=== PATIENT | female | born 1955 | race African-American/Black ===

== ENCOUNTER 2019-03-30 02:26 | Inpatient (IN) | payer MEDICAID ==
[~2019-03-30] VITALS: Ht 177.8 cm; Wt 130.2 kg
[2019-03-30] VITALS (20 sets, daily range): BP systolic 100–139; BP diastolic 55–85
[2019-03-30] MEDS ORDERED: ONDANSETRON HCL 4MG/2ML INJ IV STA (02:34)
[2019-03-30] MEDS ORDERED: NITROGLYCERIN OINT 1GM/INCH UDPKT TD ONE (02:45)
[2019-03-30 03:03] LABS: BASOPHILS % 0.6 % (0.0-2.0); EOSINOPHILS % 2.1 % (0.0-5.0); HEMATOCRIT. 45.4 % (36.0-48.0); HEMOGLOBIN. 15.2 g/dL (12.0-16.0); MEAN CORPUSCULAR HEMOGLOBIN 27.5 pg (28.0-32.0); MEAN CORPUSCULAR VOLUME 82.2 fL (81.0-99.0); MEAN PLATELET VOLUME 10.8 fl (7.4-10.4); MONOCYTES % 6.3 % (2.0-8.0); PLATELET 218 x1000/uL (130-400); RED BLOOD CELL COUNT 5.53 mill/uL (4.2-5.4); RED CELL DISTRIBUTION WIDTH 15.9 % (11.6-14.6)
[2019-03-30 03:07] LABS: CHLORIDE 109 mEq/L (98-107)
[2019-03-30 03:17] LABS: BG BASE EXCESS -0.8 mmol/L (-2.0-2.0); BG BILEVEL POS AIRWAY PRESSURE 15/5; BG CARBOXYHEMOGLOBIN 0.6 % (0.5-1.5); BG DEOXYHEMOGLOBIN 0.8 % (0.0-5.0); BG FRACTION INSPIRED OXYGEN 50; BG HCO3 ACT 24.9 mmol/L (22.0-26.0); BG METHEMOGLOBIN 0.3 % (0.0-1.5); BG OXYGEN SATURATION 99.2 % (92.0-98.5); BG OXYHEMOGLOBIN 98.3 % (94.0-97.0); BG PH 7.361 (7.350-7.450); BG PO2 210.7 mmHg (75.0-100.0); BG SAMPLE SITE RIGHT BRACHIAL; BG VENT MODE MASK - BIPAP
[2019-03-30] MEDS ORDERED: ONDANSETRON HCL 4MG/2ML INJ IV PRN (09:15)
[2019-03-30] MEDS ORDERED: GUAIFENESIN 200MG/10ML SUGAR FREE UDC PO PRN (09:15)
[2019-03-30] MEDS ORDERED: CLONIDINE 0.1MG TABLET PO PRN (09:15)
[2019-03-30] MEDS ORDERED: MAGNESIUM/ALUMINUM HYDROXIDE/SIMETHICONE 30ML UDC PO PRN (09:15)
[2019-03-30] MEDS ORDERED: DIPHENHYDRAMINE 50MG/ML VIAL IV PRN (09:15)
[2019-03-30] MEDS ORDERED: FUROSEMIDE 40MG/4ML VIAL IVP SCH ×2 (09:15→17:15)
[2019-03-30 11:32] LABS: PROTHROMBIN TIME 10.7 sec (9.6-11.0)
[2019-03-30] MEDS ORDERED: DEXTROSE 50% WATER 50ML SYRINGE IV PRN (11:45)
[2019-03-30] MEDS: BLOOD SUGAR DIAGNOSTIC STRIP TEST SCH ×3 (11:58→21:52)
[2019-03-30] MEDS: INSULIN LISPRO 100 UNITS/ML SUBCUT SCH ×3 (12:20→21:55)
[2019-03-30] MEDS: IPRATROPIUM/ALBUTEROL 0.5-3(2.5)MG/3ML NEB HHN SCH ×2 (12:57→20:33)
[2019-03-30] MEDS: SODIUM CHLORIDE 0.9% INJ 3ML FLUSH IVF SCH ×2 (14:12→22:19)
[2019-03-30] MEDS: NITROGLYCERIN OINT 1GM/INCH UDPKT TD SCH ×2 (14:16→22:00)
[2019-03-30] MEDS ORDERED: WARFARIN SODIUM 7.5MG TABLET PO SCH (18:00)
[2019-03-30] MEDS: METFORMIN HCL 500MG TABLET PO SCH (18:32)
[2019-03-30] MEDS ORDERED: ENOXAPARIN 60MG/0.6ML SYR SUBCUT NR (18:45)
[2019-03-30] MEDS: FLUTICASONE PROPIONATE 50MCG/SPRAY BOTTLE BOTHNSTRLS SCH (21:50)
[2019-03-30] MEDS: ATORVASTATIN CALCIUM 40MG TABLET PO SCH (21:51)
[2019-03-30] MEDS: CARVEDILOL 12.5MG TABLET PO SCH (21:51)
[2019-03-30] MEDS: ACETAMINOPHEN 325MG TABLET PO PRN (21:57)
[2019-03-31] VITALS (12 sets, daily range): BP systolic 108–152; BP diastolic 62–93
[2019-03-31] MEDS: IPRATROPIUM/ALBUTEROL 0.5-3(2.5)MG/3ML NEB HHN SCH ×4 (01:14→20:57)
[2019-03-31] MEDS: GLIPIZIDE 10MG TABLET PO SCH (06:00)
[2019-03-31] MEDS: NITROGLYCERIN OINT 1GM/INCH UDPKT TD SCH ×3 (06:00→22:00)
[2019-03-31] MEDS: INSULIN LISPRO 100 UNITS/ML SUBCUT SCH ×4 (06:00→21:00)
[2019-03-31] MEDS ORDERED: SODIUM CHLORIDE 0.45% 1,000 ML IV ONE (06:00)
[2019-03-31] MEDS: METFORMIN HCL 500MG TABLET PO SCH ×2 (06:00→16:51)
[2019-03-31] MEDS: SODIUM CHLORIDE 0.9% INJ 3ML FLUSH IVF SCH ×3 (06:07→22:31)
[2019-03-31] MEDS: BLOOD SUGAR DIAGNOSTIC STRIP TEST SCH ×4 (06:08→21:27)
[2019-03-31 06:30] LABS: PROTHROMBIN TIME 10.7 sec (9.6-11.0)
[2019-03-31 06:49] LABS: PHOSPHORUS 5.3 mg/dL (2.5-4.9)
[2019-03-31 07:21] LABS: EOSINOPHILS % 2.4 % (0.0-5.0); HEMATOCRIT. 43.5 % (36.0-48.0); HEMOGLOBIN. 14.4 g/dL (12.0-16.0); LYMPHOCYTES % 43.8 % (20.0-50.0); MEAN CORPUSCULAR HEMOGLOBIN 27.4 pg (28.0-32.0); MEAN CORPUSCULAR VOLUME 82.7 fL (81.0-99.0); NEUTROPHILS % 43.8 % (40.0-76.0); PLATELET 206 x1000/uL (130-400); RED BLOOD CELL COUNT 5.26 mill/uL (4.2-5.4); RED CELL DISTRIBUTION WIDTH 15.9 % (11.6-14.6)
[2019-03-31] MEDS: FLUTICASONE PROPIONATE 50MCG/SPRAY BOTTLE BOTHNSTRLS SCH ×2 (08:25→21:26)
[2019-03-31] MEDS: CARVEDILOL 12.5MG TABLET PO SCH ×2 (08:26→21:26)
[2019-03-31] MEDS: SPIRONOLACTONE 25MG TABLET PO SCH (08:26)
[2019-03-31] MEDS: ALLOPURINOL 100 MG TABLET PO SCH (08:26)
[2019-03-31] MEDS: AMLODIPINE 5MG TABLET PO SCH (08:27)
[2019-03-31] MEDS ORDERED: ENOXAPARIN 100MG/ML SYR SUBCUT SCH ×2 (09:45→21:45)
[2019-03-31] MEDS ORDERED: MAGNESIUM 2 G PREMIX 50 ML IV NR (11:00)
[2019-03-31] MEDS: ACETAMINOPHEN 325MG TABLET PO PRN ×2 (17:18→23:22)
[2019-03-31] MEDS: ATORVASTATIN CALCIUM 40MG TABLET PO SCH (21:27)
[2019-04-01] VITALS (17 sets, daily range): BP systolic 105–141; BP diastolic 53–85
[2019-04-01] MEDS: IPRATROPIUM/ALBUTEROL 0.5-3(2.5)MG/3ML NEB HHN SCH ×4 (02:11→21:07)
[2019-04-01] MEDS: SODIUM CHLORIDE 0.9% INJ 3ML FLUSH IVF SCH ×3 (05:50→22:05)
[2019-04-01] MEDS: GLIPIZIDE 10MG TABLET PO SCH (05:50)
[2019-04-01] MEDS: NITROGLYCERIN OINT 1GM/INCH UDPKT TD SCH ×3 (05:50→22:08)
[2019-04-01] MEDS: BLOOD SUGAR DIAGNOSTIC STRIP TEST SCH ×4 (05:51→22:05)
[2019-04-01] MEDS: METFORMIN HCL 500MG TABLET PO SCH ×2 (05:51→17:20)
[2019-04-01] MEDS: INSULIN LISPRO 100 UNITS/ML SUBCUT SCH ×4 (05:51→21:00)
[2019-04-01] MEDS ORDERED: SODIUM CHLORIDE 0.45% 1,000 ML IV SCH (07:00)
[2019-04-01] MEDS: CARVEDILOL 12.5MG TABLET PO SCH ×2 (07:54→22:04)
[2019-04-01] MEDS: AMLODIPINE 5MG TABLET PO SCH (07:54)
[2019-04-01] MEDS: SPIRONOLACTONE 25MG TABLET PO SCH (07:54)
[2019-04-01] MEDS: FLUTICASONE PROPIONATE 50MCG/SPRAY BOTTLE BOTHNSTRLS SCH ×2 (07:55→22:04)
[2019-04-01] MEDS: ALLOPURINOL 100 MG TABLET PO SCH (07:55)
[2019-04-01 07:56] LABS: BASOPHILS % 0.8 % (0.0-2.0); EOSINOPHILS % 2.6 % (0.0-5.0); HEMATOCRIT. 41.5 % (36.0-48.0); HEMOGLOBIN. 13.8 g/dL (12.0-16.0); LYMPHOCYTES % 38.8 % (20.0-50.0); MEAN CORPUSCULAR HEMOGLOBIN 27.5 pg (28.0-32.0); MEAN CORPUSCULAR VOLUME 82.4 fL (81.0-99.0); MEAN PLATELET VOLUME 10.4 fl (7.4-10.4); MONOCYTES % 9.3 % (2.0-8.0); NEUTROPHILS % 48.5 % (40.0-76.0); PLATELET 191 x1000/uL (130-400); RED BLOOD CELL COUNT 5.03 mill/uL (4.2-5.4); RED CELL DISTRIBUTION WIDTH 15.6 % (11.6-14.6)
[2019-04-01 08:23] LABS: PROTHROMBIN TIME 10.8 sec (9.6-11.0)
[2019-04-01] MEDS ORDERED: ASPIRIN 325MG TABLET PO NR (09:15)
[2019-04-01] MEDS ORDERED: LIDOCAINE HCL 1% 20ML VIAL (Pyxis) INJ ONE (10:28)
[2019-04-01] MEDS ORDERED: IODIXANOL 320MG/ML 100 ML BOTTLE IV ONE (10:29)
[2019-04-01] MEDS ORDERED: ASPIRIN/SOD BICARB/CITRIC ACID 324MG TAB EFF ONE (10:29)
[2019-04-01] MEDS ORDERED: MIDAZOLAM HCL 2 MG/2 ML VIAL ONE (11:10)
[2019-04-01] MEDS ORDERED: FENTANYL CITRATE/PF 50MCG/ML 2ML VIAL ONE (11:10)
[2019-04-01] MEDS ORDERED: ONDANSETRON HCL 4MG/2ML INJ IV PRN (11:45)
[2019-04-01] MEDS ORDERED: ATROPINE SULFATE 1MG/10ML SYR IV PRN (11:45)
[2019-04-01] MEDS ORDERED: ACETAMINOPHEN 325MG TABLET PO PRN (11:45)
[2019-04-01] MEDS ORDERED: MORPHINE SULFATE 2 MG/ML CPJ (NOT FOR IM USE) IV PRN (11:45)
[2019-04-01] MEDS ORDERED: SODIUM CHLORIDE 0.45% 1,000 ML IV NR (12:00)
[2019-04-01] MEDS ORDERED: NICARDIPINE 100MCG/ML 10ML VIAL (CATH LAB) IV ONE (12:06)
[2019-04-01] MEDS ORDERED: NITROGLYCERIN 50MCG/ML 10ML VIAL (CATH LAB) IV ONE (12:06)
[2019-04-01] MEDS ORDERED: HEPARIN SODIUM 1,000 UNIT/1ML VIAL IV ONE (12:06)
[2019-04-01] MEDS ORDERED: WARFARIN SODIUM 5MG TABLET PO NR (18:00)
[2019-04-01] MEDS ORDERED: ENOXAPARIN 80MG/0.8ML SYR SUBCUT SCH (19:00)
[2019-04-01] MEDS: ATORVASTATIN CALCIUM 40MG TABLET PO SCH (22:05)
[2019-04-02] VITALS (10 sets, daily range): BP systolic 107–137; BP diastolic 57–79
[2019-04-02] MEDS: IPRATROPIUM/ALBUTEROL 0.5-3(2.5)MG/3ML NEB HHN SCH ×2 (02:45→07:58)
[2019-04-02] MEDS: NITROGLYCERIN OINT 1GM/INCH UDPKT TD SCH ×2 (06:00→13:00)
[2019-04-02] MEDS: BLOOD SUGAR DIAGNOSTIC STRIP TEST SCH ×3 (06:21→16:11)
[2019-04-02] MEDS: SODIUM CHLORIDE 0.9% INJ 3ML FLUSH IVF SCH ×2 (06:21→13:00)
[2019-04-02] MEDS: INSULIN LISPRO 100 UNITS/ML SUBCUT SCH ×3 (06:22→16:11)
[2019-04-02] MEDS: GLIPIZIDE 10MG TABLET PO SCH (06:24)
[2019-04-02] MEDS: METFORMIN HCL 500MG TABLET PO SCH ×2 (06:24→17:42)
[2019-04-02 06:30] LABS: BASOPHILS % 1.1 % (0.0-2.0); EOSINOPHILS % 2.5 % (0.0-5.0); HEMATOCRIT. 42.4 % (36.0-48.0); HEMOGLOBIN. 14.2 g/dL (12.0-16.0); LYMPHOCYTES % 37.4 % (20.0-50.0); MEAN CORPUSCULAR HEMOGLOBIN 27.6 pg (28.0-32.0); MEAN CORPUSCULAR VOLUME 82.4 fL (81.0-99.0); MEAN PLATELET VOLUME 10.6 fl (7.4-10.4); PLATELET 172 x1000/uL (130-400); RED BLOOD CELL COUNT 5.15 mill/uL (4.2-5.4); RED CELL DISTRIBUTION WIDTH 15.5 % (11.6-14.6)
[2019-04-02 06:34] LABS: PROTHROMBIN TIME 10.9 sec (9.6-11.0)
[2019-04-02] MEDS: ALLOPURINOL 100 MG TABLET PO SCH (08:42)
[2019-04-02] MEDS: SPIRONOLACTONE 25MG TABLET PO SCH (08:43)
[2019-04-02] MEDS: CARVEDILOL 12.5MG TABLET PO SCH (08:43)
[2019-04-02] MEDS: AMLODIPINE 5MG TABLET PO SCH (08:43)
[2019-04-02] MEDS: FLUTICASONE PROPIONATE 50MCG/SPRAY BOTTLE BOTHNSTRLS SCH (08:43)
[2019-04-02] MEDS ORDERED: ENOXAPARIN 100MG/ML SYR SUBCUT SCH (09:00)
[2019-04-02] MEDS ORDERED: WARFARIN SODIUM 7.5MG TABLET PO SCH (18:00)
== END 2019-04-02 18:15 | disposition home or self-care (01) | DRG 192 ==
LOC: ER 02:36 → 3WST 04:45 → ENRESERV 07:24
PROVIDERS: ADMIT Internal Medicine; ATTEND Internal Medicine
PROC: 5A09357 Assistance with Respiratory Ventilation, Less than 24 Consecutive Hours, Continuous Positive Airway Pressure (ICD-10-PCS; 2019-03-30)
PROC: 4A023N8 Measurement of Cardiac Sampling and Pressure, Bilateral, Percutaneous Approach (ICD-10-PCS; principal; 2019-04-01)
PROC: B2111ZZ Fluoroscopy of Multiple Coronary Arteries using Low Osmolar Contrast (ICD-10-PCS; 2019-04-01)
DX: I13.0 Hypertensive heart and chronic kidney disease with heart failure and stage 1 through stage 4 chronic kidney disease, or unspecified chronic kidney disease (principal); J96.00 Acute respiratory failure, unspecified whether with hypoxia or hypercapnia; I50.23 Acute on chronic systolic (congestive) heart failure; E11.22 Type 2 diabetes mellitus with diabetic chronic kidney disease; I27.29 Other secondary pulmonary hypertension; I42.9 Cardiomyopathy, unspecified; J44.9 Chronic obstructive pulmonary disease, unspecified; M10.9 Gout, unspecified; I25.10 Atherosclerotic heart disease of native coronary artery without angina pectoris; N18.9 Chronic kidney disease, unspecified; E78.5 Hyperlipidemia, unspecified; I34.0 Nonrheumatic mitral (valve) insufficiency; E78.00 Pure hypercholesterolemia, unspecified; Z82.49 Family history of ischemic heart disease and other diseases of the circulatory system; Z79.01 Long term (current) use of anticoagulants; Z95.810 Presence of automatic (implantable) cardiac defibrillator; Z83.3 Family history of diabetes mellitus
CPT/HCPCS: 36415; 36600; 71045; 80048; 80053; 82375; 82805; 82962; 83735; 83880; 84100; 84484; 85025; 87804; 93005; 93306; 93460; 93970; 94640; 94660; 99291; C1760; C1769; C1887; C1893; J1644; J1650; J1815; J1940; J2250; J2405; J3010; J3475; J3490; Q9967

== ENCOUNTER 2023-02-08 17:47 | Emergency (ER) | payer MEDICARE, MEDICAID ==
[~2023-02-08] VITALS: Ht 177.8 cm; Wt 135.0 kg
[~2023-02-08 17:47] MED LIST: ALLO100T MT; AMLO5TAB88 PO; CARV12.545 PO; FAMO20TA8 MT; FURO40TA5 PO; GLIP10TA10 PO; PANT40TA51 MT; PIOG30TA70 PO; RIVA20TA PO; SACU1TAB7 PO; SPIR25TA PO
[2023-02-08 18:24] VITALS: O2SAT 97
[2023-02-08] MEDS ORDERED: GUAI600T26 MT (21:59)
[2023-02-09] MEDS ORDERED: IBUPROFEN 600MG TABLET PO ONE (00:30)
[2023-02-09] MEDS ORDERED: ACETAMINOPHEN 325MG TABLET PO ONE (00:30)
[2023-02-09 01:49] VITALS: BP 96/65; PULSE 96; RESP 17; TEMP 98.5
== END 2023-02-09 02:08 | disposition home or self-care (01) ==
LOC: ER 18:20
DX: B34.9 Viral infection, unspecified (principal); I25.10 Atherosclerotic heart disease of native coronary artery without angina pectoris; E11.9 Type 2 diabetes mellitus without complications; I10 Essential (primary) hypertension; Z79.899 Other long term (current) drug therapy; Z20.822 Contact with and (suspected) exposure to COVID-19
CPT/HCPCS: 99285; 71045; 82962; 87426; 87804 ×2; C9803